=== PATIENT | female | born 1980 | race Caucasian/White ===

== ENCOUNTER 2023-06-11 13:44 | Outpatient (CLI) | payer MEDICARE ==
[~2023-06-11 13:44] MED LIST: Magnevist 469MG/ML 20 ML VIAL ONE
== END 2023-06-11 13:45 | disposition home or self-care (01) ==
LOC: MRI 13:44
PROVIDERS: ATTEND Psychiatry & Neurology Neurology
DX: R25.1 Tremor, unspecified (principal)
CPT/HCPCS: 70553; 95816; A9579

== ENCOUNTER 2024-01-25 09:42 | Outpatient (CLI) | payer MEDICARE | END 2024-01-25 09:43 | disposition home or self-care (01) | LOC: SCSMRI 09:42 | PROVIDERS: ATTEND Family Medicine | DX: M54.6 Pain in thoracic spine (principal); S22.009A Unspecified fracture of unspecified thoracic vertebra, initial encounter for closed fracture; K76.89 Other specified diseases of liver | CPT/HCPCS: 72146 ==

== ENCOUNTER 2024-02-04 14:56 | Outpatient (CLI) | payer MEDICARE | END 2024-02-04 14:57 | disposition home or self-care (01) | LOC: SCSMRI 14:56 | PROVIDERS: ATTEND Family Medicine | DX: M50.11 Cervical disc disorder with radiculopathy, high cervical region (principal); M50.121 Cervical disc disorder at C4-C5 level with radiculopathy; M50.122 Cervical disc disorder at C5-C6 level with radiculopathy | CPT/HCPCS: 72141 ==